=== PATIENT | female | born 1955 | race Caucasian/White ===

== ENCOUNTER → 2021-09-07 16:06 | Outpatient (RCR) | payer OTHER, SELFPAY ==
--- NOTE | 2020-02-21 11:03 | MHC.SL.LAN ---
Referring Provider: Sina Cline MD Reason for Referral Chronic hoarseness and concerns for dysphagia Type of Treatment: 90852 Behavioral and Qualitative Analysis of Voice and Resonance Onset of Symptoms/Illness: 05/09/07 Date Plan of Treatment Created: 02/11/20 Date Treatment Started: Medical Diagnosis: Sophia Spence is a 64 year old female with a past medical history significant for hypertension, diabetes, chronic laryngitis, acid reflux with medication management, ear infections, allergies, gastroparesis, tinnitus, breast cancer, bronchitis, sinisusitis, PNA, Asthma, arthritis, hearing loss, Alves's Esophagus, voice changes, and vocal polyps/nodules. She was referred for a voice evaluation by her ENT, Dr. 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 Vision Screen: Impressions and Recommendations Recommendation for Speech Therapy: Text Comment: Frequency/Duration: Date Range for Service Requested: Notes: Goal #1 : Status of Goal #1 : Objectives/Clinical Observations: Goal #2 : Status of Goal #2: Objectives/Clinical Observations : Goal #3 : Status of Goal #3: Objectives/Clinical Observations : Goal #4: Status of Goal #4: Objectives/Clinical Observations : Timeline to reassess: Other Referrals : It is recommended that Sophia participate in skilled voice therapy in the outpatient setting with a speech therapist specialized in voice therapy to improve her overall vocal functioning. Patient Education Completed : Yes Patient/Caregiver Education : Comment: Barriers to Learning: C.O.D. Audit Clerk Clinican/Clinical Fellow: Yes: Oliva Jhaveri M.A., CF-FIELD LABORATORY OPERATOR Supervisory Statement: Yes Speech Language Pathologist: Shireen Delaney M.A., CCC-FIELD LABORATORY OPERATOR
--- NOTE | 2020-08-22 12:35 | MHC.SLORD ---
Speech Language Pathology Order Status: Speech therapy session is canceled today as we are awaiting insurance re-authorization. MANAGER SHIPPING called and spoke with patient. Plan to schedule sessions pending authorization.
== END | disposition home or self-care (01) ==
LOC: HO.SH 02-11 08:57
PROVIDERS: Visit Provider Internal Medicine
DX: R47.9 Unspecified speech disturbances (principal)
CPT/HCPCS: 92507; 92524